=== PATIENT | male | born 1970 | race Caucasian/White ===

== ENCOUNTER 2018-07-07 09:37 | Emergency (ER) | payer OTHER ==
[2018-07-07 09:46] VITALS: BP 123/95; PULSE 100; TEMP 98.6; BMI 32.1
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
[2018-07-07] MEDS ORDERED: ACETAMINOPHEN 500 MG TABLET (FP) PO ONE (10:13)
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
[2018-07-07] MEDS ORDERED: ACETAMINOPHEN 325 MG TABLET (FP) ONE (10:29)
== END 2018-07-07 12:10 | disposition home or self-care (01) ==
LOC: JERFT 09:37
PROC: 3E1CX8Z Irrigation of Eye using Irrigating Substance (ICD-10-PCS; principal; 2018-07-07)
DX: T65.893A Toxic effect of other specified substances, assault, initial encounter (principal); H57.89 Other specified disorders of eye and adnexa; Y92.29 Other specified public building as the place of occurrence of the external cause; Y93.9 Activity, unspecified; Y99.0 Civilian activity done for income or pay
CPT/HCPCS: 99281-25